=== PATIENT | male | born 1990 | race Caucasian/White ===

== ENCOUNTER 2018-04-13 02:35 | Outpatient (CLI) | payer BC, SELFPAY ==
[2018-04-13 09:44] LABS: Cholesterol 153 mg/dL (50-200); Glucose 87 mg/dL (70-100); HDL Cholesterol 63 mg/dL (40-60); LDL CHOLESTEROL 85 mg/dL (<100); Triglyceride 52 mg/dL (30-150)
== END 2018-04-13 02:55 ==
PROVIDERS: PCP General Practice; Visit Provider General Practice
DX: Z00.00 Encounter for general adult medical examination without abnormal findings (principal); Z13.1 Encounter for screening for diabetes mellitus; Z13.220 Encounter for screening for lipoid disorders
CPT/HCPCS: 36415; 80061; 82947; 83721